=== PATIENT | female | born 1940 | race Caucasian/White ===

== ENCOUNTER 2017-08-02 07:18 | Outpatient (CLI) | payer MEDICARE, OTHER ==
[~2017-08-02] VITALS: Ht 165.1 cm; Wt 76.8 kg
--- NOTE | ~2017-08-02 | OP ---
PATIENT NAME: CAROLINA CARROLL MEDICAL RECORD: [id number] :44 LOCATION:D.CAT ADMISSION DATE: SURGEON: ANANDA SALDIVAR MD DATE OF OPERATION: 08/02/2017 PROCEDURE: Left heart catheterization, right heart catheterization, coronary angiography, left ventriculogram. PROCEDURE IN DETAIL: The patient was brought to cardiac catheterization lab in a stable condition. Both groins were sterilely prepped and draped. Because of the ostomy site on the right side, we went to the left groin. We percutaneously accessed the left femoral artery and the left femoral vein using modified Seldinger techniques without difficulty where we placed respectively a 7-[place] venous sheath and a 5-[place] arterial sheath. We were then able to take a balloon tipped S-shaped [place]-Jaja catheter and place it into the pulmonary artery and in a wedge position measure wedge pressures, wedge sats, pulmonary artery pressures, pulmonary artery sats, cardiac outputs, right ventricular pressures and sats, high RA sats, mid RA sats, and low RA sats without difficulty for complete heart catheterization while simultaneously getting AO sats. We were then able to intubate selectively the left coronary artery, the right coronary artery, and the left ventricular cavity without difficulty and get pullback pressure measurements across the aortic valve and directly visualize for any mitral regurgitation. FINDINGS: 1. Left coronary system was normal from the left main through all its branches. There was no significant stenoses and she has a right dominant system. The right coronary artery is normal. 2. 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 HEMODYNAMICS: The patient's cardiac output is 3.55 liters per minute. She has normal pulmonary vascular resistance and normal systemic vascular resistance. There is no step-up in saturation measurements or step-down in saturation measurements throughout the inferior vena cava, superior vena cava, the right atrium, the right ventricular pulmonary arteries bilaterally. The patient had normal pulmonary pressures and the patient had a normal wedge pressure. There was no gradient across any valvular orifice. IMPRESSION: The patient has no evidence of structural heart disease. 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 There is no evidence of coronary artery disease. There is no evidence of significant valvular abnormalities. There is no evidence of pulmonary hypertension and there is no evidence of elevated end-diastolic pressures consistent with heart failure. The overall ejection fraction is 65% without regional wall motion abnormalities. The patient does have and had shown evidences of atrial dysrhythmia. Upon admission, the patient was in atrial fibrillation or multifocal atrial complexes that was shown to have episodes of subclinical clinical pauses of 1.8 to 2.2 seconds. The patient converted into an atrial flutter during the procedure and is maintained in between atrial flutter and sinus rhythm. The patient will be referred to electrophysiology, but in the meantime, we will place the patient on OPERATIVE REPORT [id number] CAROLINA CARROLL to start this evening. TRANSINT:[id number] Voice Confirmation ID: [id number] DOCUMENT ID: [id number] ANANDA SALDIVAR MD at 1252 CC: [id number] DICTATION DATE: 08/02/17 1004 HEAD OF MARKETING: 08/02/17 1200 DEP CLI 08/02/17 [id number] [place] [address]
--- NOTE | ~2017-08-02 | HEMODYNAMI ---
PATIENT:CAROLINA CARROLL MEDICAL RECORD: [id number] : 44 LOCATION:[facility] ADMISSION DATE: 08/02/17 Generatedon:08/02/20179:45 Patient name: CAROLINA CARROLL Patient #: [id number] SSN: : 1940 Date of study: 08/02/2017 Page: Of Hemodynamic Procedure Report Patient Data Patient Demographics Procedure consent was obtained First Name: CAROLINA Gender: Female Last Name: GLEN : 1940 [facility] Initial: TITO Age: 77 year(s) Patient #: [id number] Race: Unknown Additional ID: [id number] Contact details Address: [address] [place] [address] State: [place] City: [place] Zip code: [address] Past Medical History Allergies Allergen Reaction Date Comments Reported Morphine 08/02/2017 Other allergy 08/02/2017 vanomycin, ilopan Admission Admission Data Admission Date: 08/02/2017 Admission Time: 7:18 Height (in.): 65 BSA: 1.84 (m2) Height (cm.): 165.1 BMI: 28.12 (kg/m2) Weight (lbs.): 169 Weight (kg.): 76.66 Lab Results Lab Result Date: 08/02/2017 Lab Result Time: 0:00 CBC Name Units Result Min Max Hematocrit % 43.4 --(*---)-- 42 54 Hemoglobin g/dl 14.6 --(-*--)-- 13.5 17.5 Procedure Procedure Types Cath Procedure Diagnostic Procedure Right Heart RHC and LHC w/Coronaries Miscellaneous Procedures Moderate Sedation up to 45 minutes Procedure Description Procedure Date Procedure Date: 08/02/2017 Procedure Start Time: 9:02 Procedure End Time: 9:45 Procedure Staff Name Function Robert Alcala MD Performing Physician Anabell Wise RT Monitor Yissel Cooper RT Scrub Siobhan Gutierrez RN Nurse Leeroy Rucker RN Nurse Procedure Data Cath Procedure Fluoroscopy Diagnostic fluoroscopy Total fluoroscopy Time: 5.9 time: 5.9 min min Diagnostic fluoroscopy Total fluoroscopy dose: 280 dose: 280 mGy mGy Contrast Material Contrast Material Type Amount (ml) Isovue 300 47 Entry Location Entry Primary Successful Side Size Upsize Upsize Entry Closure Judd ccessful Closure Location (Fr) 1 (Fr) 2 (Fr) Remarks Device Remarks Femoral Left 7 Fr Manual vein Short Compression Femoral Left 5 Fr Exoseal artery Estimated blood loss: 5 ml Diagnostic catheters Device Type Used For End Catheter Placement SWAN 7Fr Thermodilution Right heart cath cather (131F7P) SWAN 7Fr Thermodilution Right heart cath cather (131F7P) MULTIPACK JL 4.0 5Fr Left Coronary catheter Angiography MULTIPACK 3DRC 5Fr Right Coronary catheter Angiography MULTIPACK Pigtail 5 Fr LV Angiography catheter Procedure Complications No complications Procedure Medications Medication Administration Route Dosage 0.9% NaCl I.V. 100 ml/hr Oxygen NC 2 l/min Lidocaine 2% added to field 20 Heparin Flush Bag added to field 2 bags (1000units/500ml NS) Versed I.V. 1 mg Hemodynamics Rest BSA: 1.84 (m2) HGB: 14.6 (g/dl) O2 Consumption: Estimated: 159.77 (ml/min) O2 Co nsumption indexed: Estimated:86.83 (ml/min/m) Heart Rate: 59 (bpm) Oxygen Saturations Time Location Saturations Hgb (g/dl) O2 Content Use (%) (ml/L) 9:17 PA 74.8 9:18 PCW 91.6 9:19 AO 96 9:23 RV 74.6 9:25 RAH 74.1 9:26 ADRIAN 72.9 9:27 RAL 72 Pressure Samples Time Site Value (mmHg) Purpose Heart Use Rate(bpm) 9:15 PCW /10(8) Snapshot 26 9:16 RV 20/6,8 Gradient 76 9:16 PA 24/9(15) Gradient 76 9:16 PA 24/9(16) Snapshot 76 9:23 RV 21/6,8 Snapshot 76 9:24 RV 25/5,11 Snapshot 74 9:25 RV 20/5,8 Gradient 71 9:25 RA 11/11(10) Gradient 71 9:25 RA 11/11(10) Snapshot 64 9:34 LV 113/-11,16 EDP 66 9:35 AO 99/63(78) Pullback 68 9:35 LV 100/12,15 Pullback 68 Gradients Valve Time Site 1 Site 2 Mean SEP/DFP Peak To Heart Use (mmHg) (sec/min) Peak Rate (mmHg) (bpm) Pulmonic 9:16 PA RV 0 10 0 76 24/9(15) 20/6,8 Tricuspid 9:25 RA RV 3 27 71 11/11(10) 20/5,8 Aortic 9:35 LV AO 6 14 1 68 100/12,15 99/63(78) Thermodilution Cardiac Output Time Cardiac Output (l/min) Use 9:22 3.48 l/m 9:22 3.55 l/m Calculations Vascular Value Indexed CO SV CO CI Resistance (dyne) values (ml/beat) (l/min) (l/(min*m)) TSVR 1644.08 3025.11 Laurie 64.41 3.8 2.1 SVR 1439.47 2648.62 Thermal 47.18 3.52 1.9 Source Qp or Qs Systolic Diastolic Ejection Regurgitation SW SWI Vol. Vol. (%) (%) Shunts (%) Left 53 .07 28.84 Left To 4.88 Source Qp or Qs Right Right To 4.88 128.42 Left Content (ml/l) O2 Difference (ml/l) O2 SA 190.62 SA-MV(AV) 42.1 O2 MV 148.52 PV-PA(VA) Flows (l/min) O2 PA 148.52 PV-MV(VV) Qs 3.8 Qsi 2.07 Qe/Qp 1 Valve P-P Mean Valve Index Valve Source Name Gradient Area Flow (cm2) Aortic 1 6 2.54 1.38 275.96 Laurie 1 6 2.35 1.28 255.27 Thermal Pulmonary 0 0 391.75 Laurie 0 0 362.37 Thermal Tricuspid 3 1.85 1.01 142.27 Laurie 3 1.72 0.93 131.6 Thermal Snapshots Samples Rest 8:58 Baseline whole waves, page 1 9:15 Snapshot PCW whole waves, page 1 9:16 Snapshot PA whole waves, page 1 9:23 Snapshot RV whole waves, page 1 9:24 Snapshot RV whole waves, page 1 9:25 Snapshot RA whole waves, page 1 9:34 EDP LV whole waves, page 1 9:35 PullBack LV/AO Average 9:25 Gradient RA/RV whole waves, page 1 9:16 Gradient PA/RV whole waves, page 1 Thermal Samples Pre Cath Intra NCS Post Cath Vital Signs Time Heart Resp SPO2 etCO2 NIBP Rhythm Pain Sedation Rate (ipm) (%) (mmHg) (mmHg) Status Level (bpm) 8:48:13 76 19 95 0 112/61(96) NSR 0 (11) 10(A) , No pain 8:52:16 70 18 100 0 99/66(87) NSR 0 (11) 10(A) , No pain 8:56:14 73 19 100 0 107/71(89) NSR 0 (11) 10(A) , No pain 9:00:15 75 15 99 0 101/70(84) NSR 0 (11) 10(A) , No pain 9:04:23 73 21 99 0 104/58(87) NSR 0 (11) 10(A) , No pain 9:08:25 73 19 98 0 107/65(81) NSR 0 (11) 10(A) , No pain 9:12:27 75 21 95 0 101/73(89) NSR 0 (11) 10(A) , No pain 9:16:37 77 19 94 0 100/66(80) NSR 0 (11) 10(A) , No pain 9:20:38 75 21 94 0 98/64(80) NSR 0 (11) 10(A) , No pain 9:24:38 73 19 94 0 98/70(81) NSR 0 (11) 10(A) , No pain 9:28:42 71 21 99 0 94/57(81) NSR 0 (11) 10(A) , No pain 9:32:42 67 19 98 0 105/65(85) NSR 0 (11) 10(A) , No pain 9:36:47 71 15 99 0 104/59(86) NSR 0 (11) 10(A) , No pain 9:40:49 60 13 98 0 102/69(85) NSR 0 (11) 10(A) , No pain 9:44:51 59 10 98 0 101/69(80) NSR 0 (11) 10(A) , No pain Medications Time Medication Route Dose Verified Delivered Reason Notes Ef fectiveness by by 8:48:06 0.9% NaCl I.V. 100ml/hr Robertmiah Mccann used for Fredrick Gutierrez RN procedure MD 8:48:22 Oxygen NC 2 l/min Robert Mccann Per Fredrick Gutierrez RN physician MD 8:48:31 Lidocaine 2% added 20ml Robert Robert for local to vial Fredrick Alcala MD anesthetic field MD 8:48:37 Heparin Flush added 2 bags Robert Robert used for Bag to Fredrick Alcala MD procedure (1000units/500ml field NS) 8:58:08 Versed I.V. 1 mg Robert Siobhan for Fredrick Gutierrez RN sedation MD Procedure Log Time Note 8:41:19 Yissel Cooper RT(R) sent for patient. Start room use. 8:41:20 Time tracking: Regular hours 8:41:24 Plan of Care:Hemodynamics will remain stable., Cardiac rhythm will remain stable., Comfort level will be maintained., Respiratory function will remain adequate., Patient/ family verbilizes understanding of procedure., Procedure tolerated without complication., Recovers from procedure without complications.. 8:41:55 Patient received from Pre/Post Procedure Room to [facility] 2 Alert and oriented. Tansferred to table in Supine position. 8:41:57 Warm blankets applied, and antonietta hugger turned on for patient comfort. 8:41:57 Correct patient and procedure confirmed by team. 8:41:58 Signed procedure consent form obtained from patient. 8:41:59 ECG and BP/O2 sat monitors applied to patient. 8:42:00 Full Disclosure recording started 8:47:06 Vital chart was started 8:48:06 0.9% NaCl 100ml/hr I.V. was administered by Siobhan Gutierrez RN; used for procedure; 8:48:22 Oxygen 2 l/min NC was administered by Siobhan Gutierrez RN; Per physician; 8:48:31 Lidocaine 2% 20ml vial added to field was administered by Robert Alcala MD; for local anesthetic; 8:48:37 Heparin Flush Bag (1000units/500ml NS) 2 bags added to field was administered by Robert Alcala MD; used for procedure; 8:50:28 Rhythm: atrial flutter 8:50:37 H&P Date Dictated: 08/02/2017 Within 30 days and on chart., H&P Addendum completed by physician on day of procedure. (MUST COMPLETE FOR ALL OUTPATIENTS). 8:50:49 Pre-procedure instructions explained to patient. 8:50:49 Pre-op teaching completed and patient verbalized understanding. 8:50:51 Family in waiting room. 8:50:53 Patient NPO since Midnight. 8:54:40 Patient allergic to Morphine 8:54:58 Patient allergic to Other allergyvanomycin, ilopan 8:55:00 Is the patient allergic to Iodine/contrast media? No. 8:55:02 Is patient on blood thinner?Yes 8:55:04 ACC The patient was administered the following blood thiners within the last 24 hours: ACCPlavix 8:55:06 Patient diabetic? No. 8:55:14 Previous problem with sedation/anesthesia? No ? 8:55:15 Snore? Yes 8:55:17 Sleep apnea? No 8:55:18 Deviated septum? No 8:55:19 Opens mouth fully? Yes 8:55:20 Sticks out tongue? Yes 8:55:22 Airway obstruction? Yes COPD 8:55:25 Dentures? No ? 8:55:28 Pre procedure: right dorsailis pedis pulse 2+ Normal; easily identifiable; not easily obliterated 8:55:43 Patient pain scale 0/10 ?. 8:55:50 IV patent on arrival in left hand with 0.9% NaCl at KVO. 8:55:53 Lab results completed and on chart. 8:55:58 Left groin area was prepped with chlora-prep and draped in sterile fashion 8:55:59 Alarms reviewed by R. N. 8:55:59 Sharps counted by scrub and verified by R.N. 8:56:04 Use device set Femoral Dx 8:56:05 ACIST Syringe (03665) opened to sterile field. 8:56:06 Bag Decanter (2002S) opened to sterile field. 8:56:06 Medline Cath Pack ([id number]) opened to sterile field. 8:56:07 SHEATH 5FR [place] (GER412) opened to sterile field. 8:56:07 DIAGNOSTIC WIRE .035 260cm J wire (145524) opened to sterile field. 8:56:08 ACIST Hand Control (55142) opened to sterile field. 8:56:09 ACIST Manifold (16261) opened to sterile field. 8:56:09 DIAGNOSTIC Multipack 5Fr catheter set (FN9601) opened to sterile field. 8:56:10 Tegaderm 4 x 4 (1626W) opened to sterile field. 8:56:11 MICROPUNCTURE 4FR Cook ([id number]) opened to sterile field. 8:56:32 SHEATH 7FR [place] (FJD156) opened to sterile field. 8:56:42 Final Timeout: patient, procedure, and site verified with staff and physician. All members of the team are in agreement. 8:56:43 Left groin site verified by team. 8:56:47 Physical assessment completed. ASA score P 2 - A patient with mild systemic disease as per Robert Alcala MD. 8:56:49 Sedation plan: IV Moderate Sedation Medication:Versed, Fentanyl 8:57:21 Lab Result : Hemoglobin 14.6 g/dl 8:57:21 Lab Result : Hematocrit 43.4 % 8:57:30 Patient Height : 65 inches 8:57:33 Patient Weight : 169 lbs 8:58:08 Versed 1 mg I.V. was administered by Siobhan Gutierrez RN; for sedation; 8:58:30 Baseline sample Acquired. 9:02:18 Zero performed for pressure channel P1 9:02:24 Procedure started. 9:02:27 Local anesthetic to left femerol artery with Lidocaine 2% by Robert Alcala MD.INITIAL ACCESS ONLY 9:02:53 Zero performed for pressure channel P1 9:05:06 Tegaderm 4 x 4 (1626W) opened to sterile field. 9:07:31 Access obtained with 4Fr micropunture. 9:07:41 A 7 Fr Short sheath was inserted into the Left Femoral vein 9:08:32 Access obtained with 4Fr micropunture. 9:08:41 A 5 Fr sheath was inserted into the Left Femoral artery 9:10:22 A SWAN 7Fr Thermodilution cather (131F7P) was advanced over the wire and used for Right heart cath. 9:12:57 swan removed damaged 9:13:39 A SWAN 7Fr Thermodilution cather (131F7P) was advanced over the wire and used for Right heart cath. 9:17:24 PA saturation: 74.8% 9:18:10 PCW saturation: 91.6% 9:19:27 AO saturation: 96% 9:22:02 Thermodilution performed using a Yang 131F7 7.0 Fr 19-22C 10.00 mL. Injectate temperature was 17.29 C, CO: 3.48 L/min, average CO: 3.52 L/min 9:22:52 Thermodilution performed using a Yang 131F7 7.0 Fr 19-22C 10.00 mL. Injectate temperature was 17.18 C, CO: 3.55 L/min, average CO: 3.52 L/min 9:23:51 RV saturation: 74.6% 9:25:42 High RA saturation: 74.1% 9:26:22 Mid RA saturation: 72.9% 9:27:07 Low RA saturation: 72% 9:27:55 [place]-Jaja removed. 9:28:39 A MULTIPACK JL 4.0 5Fr catheter was advanced over the wire and used for Left Coronary Angiography. 9:31:37 Catheter removed. 9:31:45 A MULTIPACK 3DRC 5Fr catheter was advanced over the wire and used for Right Coronary Angiography. 9:32:47 Catheter removed. 9:33:04 A MULTIPACK Pigtail 5 Fr catheter was advanced over the wire and used for LV Angiography. 9:34:36 LV gram done using FREED 9:34:39 Injector settings: Ml/sec: 12, Volume: 8, 9:34:41 LV hemodynamics recorded. 9:36:25 Catheter removed. 9:36:34 Sheath removed intact; hemostasis achieved with Exoseal to the Left Femoral artery. 9:36:45 Sheath removed intact; hemostasis achieved with Manual Compression to the Left Femoral vein. 9:36:47 Procedure ended.(Physican Out) 9:37:01 Fluoroscopy time 05.90 minutes. 9:37:06 Fluoroscopy dose: 280 mGy 9:37:06 Flurop Dose total: 280 9:37:10 Contrast amount:Isovue 300 47ml. 9:37:11 Sharps counted by scrub and verified by R.N. 9:37:12 Insertion/operative site no bleeding no hematoma. 9:37:15 Post-op/insertion site Left Femoral artery dressed using a 4 x 4 and Tegaderm. 9:37:22 Post left femerol artery:stable, clean and dry 9:37:24 Post Procedure Pulses reassessed and unchanged 9:37:35 EXOSEAL 5Fr (EX500) opened to sterile field. 9:38:44 Post procedure: right dorsailis pedis pulse 2+ Normal; easily identifiable; not easily obliterated. 9:38:47 Post-procedure physical assessment completed. ASA score P 2 - A patient with mild systemic disease as per Robert Alcala MD. 9:38:52 Post procedure rhythm: atrial flutter 9:38:59 Estimated blood loss: 5 ml 9:39:00 Post procedure instruction explained to patient.Patient verbalizes understanding. 9:39:01 Patient needs reinforcement of post procedure teaching. 9:39:01 Procedure and supply charges have been captured, reviewed, submitted and are correct. 9:39:27 Procedure type changed to Cath procedure, Diagnostic procedure, Right Heart, RHC and LHC w/Coronaries, Miscellaneous Procedures, Moderate Sedation up to 45 minutes 9:39:28 See physician's report for complete and final results. 9:39:37 Procedure Complication : No complications 9:45:06 Vital chart was stopped 9:45:08 Report given to Pre/Post Procedure Room. 9:45:10 Patient transfered to Pre/Post Procedure Room with Stretcher. 9:45:14 Procedure ended. 9:45:14 Full Disclosure recording stopped 9:45:20 End room use (Document Last) Device Usage Item Name Manufacture Quantity Catalog Hospital Part Current Minima l Lot# / Number Charge Number Stock Stock Serial# Code ACIST Syringe Acist 1 76462 256921 [id number] 290655 20 (01623) Medical Systems Inc Bag Decanter Microtek 1 2001S 975974 35182 818089 5 () Medical Inc. Medline Cath Cardinal 1 [id number] 806641 40526 890939 5 [facility] ([id number]) SHEATH 5FR Terumo 1 [id number] 845487 849138 880281 40 [place] (DMV483) DIAGNOSTIC [facility] [place] 1 512072 191216 429010 957362 30 WIRE .035 260cm J wire (378543) ACIST Hand Acist 1 76734 530923 605456 952005 5 Control Medical (31504) Systems Inc ACIST Manifold Acist 1 93569 994313 044438 519294 5 (27560) Medical Systems Inc DIAGNOSTIC Cardinal 1 MR5975 267740 13821 602432 30 Multipack 5Fr Health catheter set (GV6433) Tegaderm 4 x 4 3M 2 1626W 730189 197613 349775 5 (1626W) MICROPUNCTURE Cook Medical 1 [id number] 322385 609049 527962 5 4FR Cook (P01362) SHEATH 7FR Terumo 1 [id number] 025608 890747 724476 5 [place] (UZT416) SWAN 7Fr Yang 2 131F7P 395660 54155 149870 3 Thermodilution [employer]iences cather (131F7P) MULTIPACK JL Cardinal 1 [id number] 5 4.0 5Fr Health catheter MULTIPACK 3DRC Cardinal 1 616507 5 5Fr catheter Health MULTIPACK Cardinal 1 106429 5 Pigtail 5 Fr Health catheter EXOSEAL 5Fr Cardinal 1 EX500 944003 708742 456607 10 (EX500) Health Signature Audit [place] Stage Time Signature Unsigned Intra-Procedure 08/02/2017 Anabell 9:45:34 AM Counts RT(R) Signatures Monitor : Anabell Signature : Counts RT Date : Time : [id number] [place] [address]
[2017-08-02] MEDS ORDERED: ZITHROMAX250 MG PO (07:34)
[2017-08-02] MEDS ORDERED: IPRAT-ALBUT 0.5-3 ML UPD (07:35)
[2017-08-02 07:58] LABS: BASOPHILS 0.4 % (0-2); EOSINOPHILS 1.1 % (0-7); HEMATOCRIT 43.4 % (36.0-48.0); HEMOGLOBIN 14.6 g/dL (12-16); IMMATURE GRANULOCYTES 0.2 % (0-5); LYMPHOCYTES 25.5 % (15-50); MCH 33.5 pg (26.0-34.0); MCHC 33.6 g/dL (31.0-37.0); MCV 99.5 fL (80.0-100.0); MEAN PLATELET VOLUME 9.9 fL (7.4-10.4); MONOCYTES 8.6 % (2-11); NEUTROPHILS 64.2 % (40-80); PLATELET COUNT 166 10x3/uL (130-400); RBC 4.36 10x6/uL (4.00-5.40); WBC 5.3 10x3/uL (4.8-10.8)
[2017-08-02 08:01] VITALS: BP 96/67; Ht 165.1 cm; Wt 76.8 kg
[2017-08-02 08:10] LABS: ANION GAP 15.7 mmol/L (8-16); CALCIUM 8.9 mg/dL (8.5-10.1); CARBON DIOXIDE 23.2 mmol/L (21.0-32.0); CREATININE - SERUM 1.3 mg/dL (0.6-1.3); POTASSIUM - SERUM 3.9 mmol/L (3.5-5.1)
[2017-08-02] MEDS ORDERED: ELIQUIS2.5 MG PO (10:20)
== END 2017-08-02 12:00 | disposition home or self-care (01) ==
LOC: D.CATH 07:18
PROVIDERS: Internal Medicine Cardiovascular Disease
DX: I48.91 Unspecified atrial fibrillation (principal); I48.92 Unspecified atrial flutter; R06.00 Dyspnea, unspecified; I10 Essential (primary) hypertension; Z79.2 Long term (current) use of antibiotics; Z88.1 Allergy status to other antibiotic agents; Z88.5 Allergy status to narcotic agent; Z88.8 Allergy status to other drugs, medicaments and biological substances; Z01.812 Encounter for preprocedural laboratory examination